=== PATIENT | male | born 1960 | race Caucasian/White ===

== ENCOUNTER 2017-09-01 18:44 | Emergency (ER) | payer MEDICARE ==
[2017-09-01 18:49] VITALS: BP 146/88; PULSE 95; RESP 20; TEMP 98
[2017-09-01] MEDS ORDERED: DIPH,PERTUS(ACELL)TETVAC-LF 0.5 ML VIAL IM ONE (19:21)
--- NOTE | 2017-09-01 19:25 | ED ---
Wound/Laceration HPI - General Chief Complaint: Wound/Laceration Stated Complaint: Finger Laceration Time Seen by Provider: 09/01/17 18:52 Source: patient Mode of arrival: ambulatory Limitations: no limitations - History of Present Illness Initial Comments: 57-year-old male presents with a small laceration to the left thumb that he excellently slipped with a knife at home and cut 1 cm laceration. Patient states it happened right before arrival. Patient unaware if his tetanus is up- to-date. He states he doesn't go to doctors much so probably needs to be updated. Patient states he was cutting a piece of uncooked meat. No recorded fever no discharge no loss of sensation or movement. -: hour(s) (1) Extremity Location: Left: Hand Place: home Patient Tetanus UTD: No Context: accidental, sharp object use Associated Symptoms: pain Treatments Prior to Arrival: bandage - Related Data Previous Rx's Medication Instructions Recorded Ibuprofen [Motrin] 800 mg PO Q8HR PRN #30 tab 11/29/14 traMADol HCl [Ultram] 50 mg PO Q6H PRN #20 tab 11/29/14 Cephalexin [Keflex] 500 mg PO Q8HR #21 cap 09/01/17 Allergies Allergy/AdvReac Type Severity Reaction Status Date / Time No Known Allergies Allergy Verified 09/01/17 18:49 Review of Systems ROS Statement: Those systems with pertinent positive or pertinent negative responses have been documented in the HPI. ROS Other: All systems not noted in ROS Statement are negative. Constitutional: Denies: fever Neurological: Denies: weakness, numbness, paresthesias Past Medical History Past Medical History: Hearing Disorder / Deafness History of Any Multi-Drug Resistant Organisms: None Reported Past Surgical History: No Surgical Hx Reported Past Psychological History: No Psychological Hx Reported Smoking Status: Never smoker Past Alcohol Use History: Occasional Past Drug Use History: None Reported General Exam - General Exam Comments Initial Comments: Patient is deaf we communicated through writing Limitations: no limitations General appearance: alert, in no apparent distress Left Forearm Wrist exam: Present: normal inspection, full ROM. Absent: tenderness, swelling Hand Wrist exam: Present: full ROM, laceration (Left thumb laceration 1 cm simple laceration no tendon involvement pulse and sensation full range of motion good capillary refill good radial pulse.). Absent: tenderness, swelling Neuro motor exam: Present: wrist extension intact, thumb opposition intact Vascular: Present: normal capillary refill Neurological exam: Present: alert, oriented X3 Psychiatric exam: Present: normal affect, normal mood Skin exam: Present: warm, dry. Absent: intact (One similar laceration to left thumb) Course Vital Signs 09/01/17 18:46 Temperature 98.0 F Pulse Rate 95 Respiratory 20 Rate Blood Pressure 146/88 O2 Sat by Pulse 100 Oximetry Procedures - Laceration Laceration #1 Consent Obtained: verbal consent Indication: laceration Site: hand Description: linear Depth: simple, single layer Anesthetic Used: lidocaine 1% Anesthesia Technique: local infiltration Pre-repair: wound explored, irrigated extensively, deep structures intact Type of Sutures: nylon Size of Sutures: 5-0 Number of Sutures: 5 Technique: simple, interrupted Patient Tolerated Procedure: well, no complications Medical Decision Making - Medical Decision Making Discussed with patient to keep area clean dry and covered. Patient to watch for signs of infection such as redness pain swelling. Patient to start antibiotic if any of these symptoms occur. return if having any problems return in 7-10 days for suture removal. Disposition Clinical Impression: Laceration Disposition: HOME SELF-CARE Condition: Good Instructions: Laceration (ED), Care For Your Stitches (ED) Additional Instructions: Suture removal in 7-10 days Prescriptions: Cephalexin [Keflex] 500 mg PO Q8HR #21 cap Is patient prescribed a controlled substance at d/c from ED?: No Referrals: None,Stated [Primary Care Provider] - 1-2 days Chintan Lechuga MD [STAFF PHYSICIAN] - 1-2 days Time of Disposition: 19:24
== END 2017-09-01 20:03 | disposition home or self-care (01) ==
LOC: EC 18:44
DX: S61.012A Laceration without foreign body of left thumb without damage to nail, initial encounter (principal); Z23 Encounter for immunization; W26.0XXA Contact with knife, initial encounter; Y93.89 Activity, other specified; Y92.009 Unspecified place in unspecified non-institutional (private) residence as the place of occurrence of the external cause
CPT/HCPCS: 12001; 90471; 90715; 99282